=== PATIENT | female | born 1930 | race Caucasian/White ===

== ENCOUNTER 2016-08-24 17:13 | Emergency (ER) | payer OTHER ==
[~2016-08-24] VITALS: Ht 160 cm; Wt 68.0 kg
[~2016-08-24 17:13] MED LIST: ASPIRIN CHILDRE81 MG PO; ATORVASTATIN CA20 MG PO; ATORVASTATIN CA40 MG PO; AUGMENTIN 875875 MG PO; CIPRO 500MG TA500 MG PO; CLARITIN10 MG PO; COLACE100 MG PO; DONEPEZIL HYDRO10 MG PO; GLUCOPHAGE500 MG PO; GOOD NEIGHBOR650 M1 PO; LEVEMIR 10100 UNITS/ SC; LEVEMIR100 U/ML SC; MELOXICAM7.5 MG PO; MYRBETRIQ50 MG PO; NAMENDA XR28 MG PO; NORCO 7.5-3251 EACH PO; NOVOLOG100 U/ML SC; NYSTATIN100000 U/2 TOP; PRINIVIL 5MG5 MG PO; SENNA CON/DOCUS1 TAB PO; TRAZODONE HCL50 M1 PO; TYLENOL TAB 32325 MG PO; VITAMIN B121000 MC2 PO; VITAMIN D250000 UNIT PO; VITAMIN D31000 IU PO; ZOFRAN4 M2 PO
--- NOTE | 2016-08-24 17:22 | ED MVC/FALL/TRAUMA COMPLAINT ---
History of Present Illness General Chief Complaint: Fall Stated Complaint: ?FALL Source: patient, EMS Exam Limitations: no limitations Vital Signs & Intake/Output Vital Signs & Intake/Output Vital Signs Date Time Temp Pulse Resp B/P Pulse O2 O2 Flow FiO2 Ox Delivery Rate 08/24 1736 Room Air 08/24 1714 97.6 76 18 146/93 97 Room Air Allergies Coded Allergies: NO KNOWN ALLERGIES (06/20/16) Reconcile Medications Acetaminophen (Arthritis Pain Relief) 650 MG TAB 1 TAB PO Q4H PRN PAIN ( Reported) Aspirin (Children's Aspirin) 81 MG CTB 81 MG PO DAILY Heart Atorvastatin Calcium (Lipitor) 20 MG TAB 1 TAB PO DAILY CHOLESTEROL (Reported ) Bisacodyl (Women's Laxative) 5 MG TABLET 1 TAB PO DAILY PRN CONSTIPATION ( Reported) Cranberry Extract (Cranberry) (Unknown Strength) CAPSULE (Unknown Dose) PO DAILY SUPPLEMENT (Reported) Donepezil Hydrochloride 10 MG TAB 1 TAB PO QHS Dementia (Reported) Ergocalciferol (Vitamin D2) (Vitamin D2) 50,000 UNIT CAPSULE 1 CAP PO Q30D SUPPLEMENT (Reported) Hydrocodone/Acetaminophen ([employer] 7.5-325 Tablet) 7.5 MG-325 MG TABLET 1 TAB PO TID PRN BREAKTHROUGH PAIN (Reported) Insulin Aspart (Novolog) 100 UNIT/ML VIAL DM (Reported) Insulin Detemir (Levemir) 100 U/ML PLACIDO 9 U SC DAILY DIABETES (Reported) Insulin Detemir (Levemir) 100 U/ML PLACIDO 6 U SC AT BEDTIME DIABETES (Reported) Lisinopril (Prinivil) 5 MG TAB 5 MG PO DAILY HTN Meloxicam 7.5 MG TABLET 1 TAB PO DAILY KNEE PAIN (Reported) Nitrofurantoin (Macrodantin) 50 MG CAPSULE 1 CAP PO DAILY UTI PREVENTION ( Reported) Nystatin 100,000 U/GM POW 1 GABRIELLE TOP BID GROIN (Reported) apply to affected area(s) Ondansetron HCl (Zofran) 4 MG TABLET 1 TAB PO Q12H PRN NAUSEA (Reported) Trazodone HCl 50 MG TABLET 1 TAB PO QHS SLEEP (Reported) Triage Note: PT BIBA FROM [facility], PT WAS FOUND FACE DOWN ON THE FLOOR. PER EMS, PT WAS FOUND ENTAGLED IN HER WALKER, THEY BELIEVE IT TO BE A MECHANICAL FALL BUT WAS UNWITNESSED. PT IS ALERT AND CONFUSED AT BASELINE. Triage Nurses Notes Reviewed? yes HPI: THIS PATIENT is an 86-year-old female who presented to the emergency department today brought in by ambulance from an [facility] for evaluation of possible unwitnessed fall. The patient was found face down on the ground tangled up in her walker, per EMS. This patient is alert and confused at baseline. Poor historian due to her underlying dementia. Unable to answer most questions regarding the current history. She is currently denying any pain, visual changes, headaches, neck pain, head pain, chest pain, difficulty breathing, or any other associated symptoms. (LINDA REDDY PA-C) Past History Travel History Traveled to [facility] past 21 day No Medical History Any Pertinent Medical History? see below for history Neurological: dementia, r cva, chronic lacunar infarcts, b12 deficiency, seizure , expressive aphashia, congnitive communication deficit EENT: NONE Cardiovascular: hypertension, syncope Respiratory: NONE Gastrointestinal: NONE Hepatic: NONE Renal: NONE Musculoskeletal: osteoarthritis Psychiatric: NONE Endocrine: diabetes, osteoporosis Blood Disorders: NONE Cancer(s): NONE CIRCULAR STUFFER/Reproductive: NONE History of MRSA: No History of VRE: No History of CDIFF: No Surgical History Surgical History: non-contributory Psychosocial History Who do you live with Patient/Self Services at Home Nursing What is your primary language German Tobacco Use: Cognitive Impairment Family History Family History, If Any: Relation not specified for: FH: heart disease Hx Contributory? No (LINDA REDDY PA-C) Review of Systems Review of Systems Constitutional: Reports: no symptoms. Eyes: Reports: no symptoms. Ears, Nose, Throat, Mouth: Reports: no symptoms. Respiratory: Reports: no symptoms. Cardiovascular: Reports: no symptoms. Gastrointestinal/Abdominal: Reports: no symptoms. Genitourinary: Reports: no symptoms. Musculoskeletal: Reports: no symptoms. Skin: Reports: no symptoms. Neurological/Psychological: Reports: see HPI. All Other Systems: Reviewed and Negative (LINDA REDDY PA-C) Physical Exam Physical Exam General Appearance: well developed/nourished, no apparent distress, alert, awake Comments: Well-developed well-nourished person in no acute distress HEENT: Normal EENT exam, head normocephalic/atraumatic with no bony deformity/ step-off of the skull, no tenderness to palpation over the scalp. Pupils equally round and reactive to light. Nose is atraumatic. Neck: Supple. No lymphadenopathy. Full range of motion. No midline tenderness Back: Normal inspection Cardiovascular: Regular rate and rhythm with no murmurs, rubs, or gallops Respiratory: Chest nontender. No respiratory distress. Breath sounds clear to auscultation bilaterally Abdomen: Soft, nontender and nondistended Extremity: Normal and equal pulses. Neuro: Alert and oriented to person only. Cranial nerves II through XII grossly intact. No aphasia. No facial droop. No unilateral weakness Skin: No appreciable rash on exposed skin, skin is warm and dry. Psych: Mood and affect is flat Core Measures ACS in differential dx? Yes Severe Sepsis Present: No Septic Shock Present: No (BARRY GREEN,LINDA) Progress Differential Diagnosis: aoritic dissection, abd injury, C/T/L spine injury, ext injury, ICH, pelvis injury, pnemothorax, spinal cord injury Diagnostic Imaging: Viewed by Me: CT Scan. Discussed w/RAD: CT Scan. Radiology Impression: PATIENT: EDIE BAKER PRESENT AGE: 86 PATIENT ACCOUNT NO: [id number] : 29 LOCATION: [facility] ORDERING PHYSICIAN: LINDA REDDY PA-C SERVICE DATE: 08/24/16 EXAM TYPE: CAT - CT CERV SPINE WO IV CONTRAST; CT HEAD WO IV CONTRAST; CT MAXILLOFACIAL W/O CON EXAMINATION: CT HEAD WITHOUT CONTRAST CT MAXILLOFACIAL WITHOUT CONTRAST CT CERVICAL SPINE WITHOUT CONTRAST CLINICAL INFORMATION: Fall. Assess for intracranial bleed, fracture or cervical spine injury. COMPARISON: CT scans of the head and cervical spine 06/20/2016. TECHNIQUE: Multidetector CT imaging of the head, maxillofacial region and cervical spine was performed without the use of intravenous contrast. Coronal and sagittal reformatted images were generated at the technologist workstation. DLP: 1417.2 mGy-cm. FINDINGS: CT head: There is no evidence of acute intracranial hemorrhage or territorial infarction. No abnormal mass-effect or midline shift is seen. [place] to white matter differentiation is well preserved. No extra-axial fluid collections are identified. The ventricles and sulci are commensurately prominent consistent with moderate diffuse volume loss. The study redemonstrates patchy areas of low attenuation in the periventricular and subcortical white matter, consistent with sequelae of microvascular ischemic disease. There are lacunar infarcts in the bilateral basal ganglia. There is an area of encephalomalacia in the right occipital lobe, consistent with sequelae of an old infarct, unchanged. The osseous structures and soft tissues are normal. There are multiple areas teeth in the mandible and the maxilla. There is a small cyst in the right sphenoid sinus. The mastoid air cells are well-aerated. CT maxillofacial: The orbits, globes, and the lamina papyracea are intact. The orbital apices, optic canals, and retrobulbar fat planes are normal. The nasal bones are intact. The nasal septum is deviated to the right anteriorly, with a right-sided bony nasal septal spur. The maxillary deal, pterygoid plates and zygomatic arches are intact, and there are no air-fluid levels in the maxillary sinuses. There are zechariah palatini. The temporomandibular joints appear intact. No mandibular fracture is seen. Bone mineralization is diffusely decreased. There are no large soft tissue contusions. CT cervical spine: There is a dextroscoliosis in the cervicothoracic region. In the sagittal projection there is normal alignment of the vertebral bodies. Vertebral body heights are maintained and there are no compression fractures. Bone mineralization is diffusely decreased consistent with osteopenia. There are are multilevel facet arthropathic changes with uncovertebral osteophytes and multilevel foraminal narrowing. The lateral masses of C1 and C2 are normally aligned and the dens is intact. There are degenerative changes at the atlantoaxial joints bilaterally. The paravertebral soft tissues are unremarkable. The imaged lung apices are clear. There is calcification in the nuchal ligament. IMPRESSION: CT head: 1. There are no acute bleeds or territorial infarcts. 2. There are relatively extensive microvascular ischemic changes with lacunar infarcts. There is diffuse volume loss. 3. There are no calvarial fractures. CT maxillofacial: 1. There are no fractures. 2. There are no large soft tissue contusions. 3. There are multiple carious teeth in the mandible and the maxilla. CT cervical spine: 1. There are no acute fractures or subluxations. 2. There is multilevel spondylosis. 3. The bones are diffusely osteopenic. DICTATED BY: CHANTEL LAM MD DATE/TIME DICTATED:08/24/161805 ASSISTANT SALES DIRECTOR:SUKI DATE/TIME TRANSCRIBED:01/20/17 / 1806 CONFIDENTIAL, DO NOT COPY WITHOUT APPROPRIATE AUTHORIZATION. <Electronically signed in Other Vendor System> SIGNED BY: CHANTEL LAM MD 08/24/16 1835 Initial ED EKG: normal axis, normal intervals, normal sinus rhythm, no ST T wave changes, 69 BEATS PER MINUTE Hand-Off Endorsed To: JOSE LANG Endorsed Time: 1953 Pending: labs, Xray Comments: 08/24/2016 7:28:11 PM: Upon discharge, the patient's family member arrived. She reported that although the ECF reported that the patient is at her baseline, she is more confused and altered than normal. She also reported that every time this patient has fallen, it is because she is altered mentally and due to a urinary tract infection. She also reported that the patient was complaining of pain in her left shoulder and upper arm after the fall. Will straight cath this patient for a urine sample and obtain x-rays of the shoulder and humerus to rule-out dislocation or fracture. Unlikey a dislocation as this patient has good range of motion at the shoulder. (BARRY GREEN,LINDA) Plan of Care: Orders Procedure Date/time Status Straight Cath 08/24 1916 Active CULTURE,URINE 08/24 1916 Active URINALYSIS 08/24 1916 Complete TROPONIN LEVEL 08/24 172 Complete COMPREHENSIVE METABOLIC PANEL 08/24 172 Complete CBC WITHOUT DIFFERENTIAL 08/24 1720 Complete EKG 08/24 172 Active Laboratory Tests 08/24/16 2017: Urine Color YEL, Urine Clarity CLEAR, Urine pH 7.5, Ur Specific [place] 1.015, Urine Protein NEG, Urine Ketones NEG, Urine Nitrite NEG, Urine Bilirubin NEG, Urine Urobilinogen 0.2, Ur Leukocyte Esterase NEG, Ur Microscopic EXAM NOT REQUIRED, Urine Hemoglobin NEG, Urine Glucose NEG 08/24/16 1728: Anion Gap 12, Estimated GFR > 60, BUN/Creatinine Ratio 24.3, Glucose 100 H, Calcium 8.8, Total Bilirubin 0.7, AST 19, ALT 25, Alkaline Phosphatase 112, Troponin I < 0.01, Total Protein 6.7, Albumin 3.6, Globulin 3.1, Albumin/ Globulin Ratio 1.2, CBC w Diff NO MAN DIFF REQ, RBC 4.19 L, MCV 91.4, MCH 30.8, RDW 13.1, MPV 7.3 L, Gran % 82.6 H, Lymphocytes % 11.5 L, Monocytes % 4.9, Eosinophils % 0.7, Basophils % 0.3, Absolute Granulocytes 6.9 H, Absolute Lymphocytes 1.0 L, Absolute Monocytes 0.4, Absolute Eosinophils 0.1, Absolute Basophils 0, PUBS MCHC 33.7 Microbiology 08/24 2016 URINE ROUT: Urine Culture - RECD Radiology Impression: x ray humerus/shoulder: negative Comments: 08/24/2016 8:50:53 PM at change of shift this patient was signed out to me. Tylenol is pending urinalysis and shoulder and humerus x-ray. Patient does have full range of motion left shoulder. X-rays negative for any acute fracture. Urinalysis is negative. Patient will be transported back to nursing facility. Todd was informed of all lab results and imaging study results. All questions were answered. Agreeable to plan. Discussed with Dr. Dubon and she agrees as well. (JOSE LANG) Departure Departure Disposition: HOME OR SELF CARE Condition: Stable Clinical Impression Primary Impression: Fall Qualifiers: Encounter type: initial encounter Qualified Code: W19.XXXA - Unspecified fall, initial encounter Referrals: GARDENIA NOBLES MD (PCP/Family) Additional Instructions: Take all previously prescribed medications as direct did. Return for any worsening symptoms or concerns. Departure Forms: Customer Survey General Discharge Information (BARRY GREEN,LINDA) PA/BULL DRIVER Co-Sign Statement Statement: ED Attending supervision documentation- [X] I saw and evaluated the patient. I have also reviewed all the pertinent lab results and diagnostic results. I agree with the findings and the plan of care as documented in the PA's/BULL DRIVER's documentation. [X] I have reviewed the ED Record and agree with the PA's/BULL DRIVER's documentation. [] Additions or exceptions (if any) to the PAs/BULL DRIVER's note and plan are summarized below: [] (ENZO ELDER,MARIAM) Departure Time of Disposition: 2051 (JOSE LANG)
[2016-08-24 17:40] LABS: ABSOLUTE BASOPHIL COUNT 0 /CUMM (0.0-0.2); ABSOLUTE EOSINOPHIL COUNT 0.1 /CUMM (0.0-0.7); ABSOLUTE GRANULOCYTE CT 6.9 /CUMM (1.4-6.5); ABSOLUTE MONOCYTE COUNT 0.4 /CUMM (0.10-0.60); BASOPHIL % 0.3 % (0.0-2.0); EOSINOPHIL % 0.7 % (0-5); GRANULOCYTE % 82.6 % (42.2-75.2); HEMATOCRIT 38.3 % (37-47); MEAN CORPUSCULAR HGB 30.8 PG (27.0-31.0); MEAN CORPUSCULAR HGB CONC 33.7 G/DL (33.0-37.0); MEAN CORPUSCULAR VOLUME 91.4 FL (81.0-99.0); MEAN PLATELET VOLUME 7.3 FL (7.4-10.4); PLATELET COUNT 203 /CUMM (130-400); RBC DISTRIBUTION WIDTH 13.1 % (11.5-14.5); RED BLOOD CELL CT 4.19 /CUMM (4.20-5.40); WHITE BLOOD CELL COUNT 8.4 /CUMM (4.8-10.8)
[2016-08-24] MEDS ORDERED: NOVOLOG100 UNIT/2 SC (18:32)
[2016-08-24] MEDS ORDERED: CRANBERRY425 MG PO (18:34)
[2016-08-24] MEDS ORDERED: MACRODANTIN50 M1 PO (18:35)
--- NOTE | 2016-08-24 18:35 | CT SCAN REPORT ---
EXAMINATION: CT HEAD WITHOUT CONTRAST CT MAXILLOFACIAL WITHOUT CONTRAST CT CERVICAL SPINE WITHOUT CONTRAST CLINICAL INFORMATION: Fall. Assess for intracranial bleed, fracture or cervical spine injury. COMPARISON: CT scans of the head and cervical spine 06/20/2016. TECHNIQUE: Multidetector CT imaging of the head, maxillofacial region and cervical spine was performed without the use of intravenous contrast. Coronal and sagittal reformatted images were generated at the technologist workstation. DLP: 1417.2 mGy-cm. FINDINGS: CT head: There is no evidence of acute intracranial hemorrhage or territorial infarction. No abnormal mass-effect or midline shift is seen. [place] to white matter differentiation is well preserved. No extra-axial fluid collections are identified. The ventricles and sulci are commensurately prominent consistent with moderate diffuse volume loss. The study redemonstrates patchy areas of low attenuation in the periventricular and subcortical white matter, consistent with sequelae of microvascular ischemic disease. There are lacunar infarcts in the bilateral basal ganglia. There is an area of encephalomalacia in the right occipital lobe, consistent with sequelae of an old infarct, unchanged. The osseous structures and soft tissues are normal. There are multiple areas teeth in the mandible and the maxilla. There is a small cyst in the right sphenoid sinus. The mastoid air cells are well-aerated. CT maxillofacial: The orbits, globes, and the lamina papyracea are intact. The orbital apices, optic canals, and retrobulbar fat planes are normal. The nasal bones are intact. The nasal septum is deviated to the right anteriorly, with a right-sided bony nasal septal spur. The maxillary deal, pterygoid plates and zygomatic arches are intact, and there are no air-fluid levels in the maxillary sinuses. There are zechariah palatini. The temporomandibular joints appear intact. No mandibular fracture is seen. Bone mineralization is diffusely decreased. There are no large soft tissue contusions. CT cervical spine: There is a dextroscoliosis in the cervicothoracic region. In the sagittal projection there is normal alignment of the vertebral bodies. Vertebral body heights are maintained and there are no compression fractures. Bone mineralization is diffusely decreased consistent with osteopenia. There are are multilevel facet arthropathic changes with uncovertebral osteophytes and multilevel foraminal narrowing. The lateral masses of C1 and C2 are normally aligned and the dens is intact. There are degenerative changes at the atlantoaxial joints bilaterally. The paravertebral soft tissues are unremarkable. The imaged lung apices are clear. There is calcification in the nuchal ligament. IMPRESSION: CT head: 1. There are no acute bleeds or territorial infarcts. 2. There are relatively extensive microvascular ischemic changes with lacunar infarcts. There is diffuse volume loss. 3. There are no calvarial fractures. CT maxillofacial: 1. There are no fractures. 2. There are no large soft tissue contusions. 3. There are multiple carious teeth in the mandible and the maxilla. CT cervical spine: 1. There are no acute fractures or subluxations. 2. There is multilevel spondylosis. 3. The bones are diffusely osteopenic.
[2016-08-24] MEDS ORDERED: NORCO 7.5-3251 EACH PO (18:37)
[2016-08-24] MEDS ORDERED: WOMEN'S LAXATIVE5 M1 PO (18:38)
[2016-08-24] MEDS ORDERED: ZOFRAN4 M2 PO (18:39)
--- NOTE | 2016-08-24 20:07 | RADIOLOGY REPORT ---
EXAMINATION: XR HUMERUS, LEFT CLINICAL INFORMATION: Fall. COMPARISON: None TECHNIQUE: AP and lateral views of the left humerus. FINDINGS: No fracture. No dislocation of the shoulder. IMPRESSION: Normal humerus. No dislocation of shoulder.
--- NOTE | 2016-08-24 20:09 | RADIOLOGY REPORT ---
EXAMINATION: 3 views of the left shoulder CLINICAL INFORMATION: Fall. COMPARISON: None available. FINDINGS: There are no fractures. The glenohumeral and acromioclavicular joints are maintained. The visualized left lung is clear. IMPRESSION: No acute osseous findings.
[2016-08-24 20:54] VITALS: BP 164/71
== END 2016-08-24 21:08 ==
LOC: ERH 17:13
PROVIDERS: Physician Assistant
DX: Z04.3 Encounter for examination and observation following other accident (principal); F03.90 Unspecified dementia, unspecified severity, without behavioral disturbance, psychotic disturbance, mood disturbance, and anxiety; R56.9 Unspecified convulsions; E11.9 Type 2 diabetes mellitus without complications; Z79.4 Long term (current) use of insulin; I10 Essential (primary) hypertension; W19.XXXA Unspecified fall, initial encounter
CPT/HCPCS: 73030-LT; 73060-LT; 81003; 87086; 93005; 93010

== ENCOUNTER 2018-03-26 15:34 | Emergency (ER) | payer OTHER ==
[~2018-03-26] VITALS: Ht 170.2 cm; Wt 65.8 kg
[~2018-03-26 15:34] MED LIST changes: +CRANBERRY425 MG PO; +MACRODANTIN50 M1 PO; +NOVOLOG100 UNIT/2 SC; +WOMEN'S LAXATIVE5 M1 PO
[2018-03-26 15:37] VITALS: BP 164/77
--- NOTE | 2018-03-26 16:06 | ED MVC/FALL/TRAUMA COMPLAINT ---
History of Present Illness General Chief Complaint: Fall Stated Complaint: FALL Source: family, old records, EMS, [facility] Exam Limitations: dementia Vital Signs & Intake/Output Vital Signs & Intake/Output Vital Signs Date Time Temp Pulse Resp B/P B/P Pulse O2 O2 Flow FiO2 Mean Ox Delivery Rate 03/26 1551 Room Air 03/26 1537 97.6 102 18 164/77 95 Room Air Allergies Coded Allergies: No Known Allergies (06/22/17) Reconcile Medications Acetaminophen (Arthritis Pain Relief) 650 MG TAB 1 TAB PO Q4H PRN PAIN ( Reported) Aspirin (Children's Aspirin) 81 MG CTB 81 MG PO DAILY Heart Atorvastatin Calcium (Lipitor) 20 MG TAB 1 TAB PO DAILY CHOLESTEROL (Reported ) Bisacodyl (Women's Laxative) 5 MG TABLET 1 TAB PO DAILY PRN CONSTIPATION ( Reported) Cranberry Extract (Cranberry) (Unknown Strength) CAPSULE (Unknown Dose) PO DAILY SUPPLEMENT (Reported) Donepezil Hydrochloride 10 MG TAB 1 TAB PO QHS Dementia (Reported) Ergocalciferol (Vitamin D2) (Vitamin D2) 50,000 UNIT CAPSULE 1 CAP PO Q30D SUPPLEMENT (Reported) Hydrocodone/Acetaminophen ([place] 7.5-325 Tablet) 7.5 MG-325 MG TABLET 1 TAB PO TID PRN BREAKTHROUGH PAIN (Reported) Insulin Aspart (Novolog) 100 UNIT/ML VIAL DM (Reported) Insulin Detemir (Levemir) 100 U/ML PLACIDO 9 U SC DAILY DIABETES (Reported) Insulin Detemir (Levemir) 100 U/ML PLACIDO 6 U SC AT BEDTIME DIABETES (Reported) Ketoconazole 2 % CREAM..G. 1 GABRIELLE TOP DAILY FUNGAL INFECTION apply to affected area(s) Lisinopril (Prinivil) 5 MG TAB 5 MG PO DAILY HTN Meloxicam 7.5 MG TABLET 1 TAB PO DAILY KNEE PAIN (Reported) Nitrofurantoin (Macrodantin) 50 MG CAPSULE 1 CAP PO DAILY UTI PREVENTION ( Reported) Nystatin 100,000 U/GM POW 1 GABRIELLE TOP BID GROIN (Reported) apply to affected area(s) Ondansetron HCl (Zofran) 4 MG TABLET 1 TAB PO Q12H PRN NAUSEA (Reported) Sulfamethoxazole/Trimethoprim (Bactrim Ds Tablet) 800 MG-160 MG TABLET 1 TAB PO BID URINE INFECTION Trazodone HCl 50 MG TABLET 1 TAB PO QHS SLEEP (Reported) Triage Note: PT BIBA FROM [facility] AFTER PT WAS NOTED TO SLIP OFF HER BED AND THEN LEAN AGAINST HER NIGHTSTAND PT HAS DEMENTIA AND IS NON VERBAL FOR THE MOST PART. PT IS CALM AND COOPERATIVE AT THIS TIME. Triage Nurses Notes Reviewed? yes HPI: Patient has dementia and is unable to provide any history. Patient had a mechanical fall at her Alzheimer[facility] unit. Patient was found on the floor leaning up against an end table. There are no signs of trauma. Patient was sent in for evaluation. Patient is DNR/DNI. Patient's niece, who is the power of energy attorney, is a nurse and she is at the bedside during the exam. Past History Travel History Traveled to [place] past 21 day No Medical History Any Pertinent Medical History? see below for history Neurological: dementia, r cva, chronic lacunar infarcts, b12 deficiency, seizure , expressive aphashia, congnitive communication deficit EENT: NONE Cardiovascular: hypertension, syncope Respiratory: NONE Gastrointestinal: NONE Hepatic: NONE Renal: NONE Musculoskeletal: osteoarthritis Psychiatric: NONE Endocrine: diabetes, osteoporosis Blood Disorders: NONE Cancer(s): NONE EMERGENCY DEPARTMENT NURSE/Reproductive: NONE History of MRSA: No History of VRE: No History of CDIFF: No Surgical History Surgical History: non-contributory Psychosocial History Who do you live with Patient/Self Services at Home Nursing What is your primary language French Tobacco Use: Cognitive Impairment Family History Family History, If Any: Relation not specified for: FH: heart disease Hx Contributory? No Review of Systems Review of Systems Constitutional: Reports: see HPI. Physical Exam Physical Exam General Appearance: well developed/nourished, no apparent distress, awake Head: atraumatic, normal appearance, nO HEMATOMA Eyes: Bilateral: PERRL, EOMI. Ears, Nose, Throat, Mouth: hearing grossly normal, moist mucous membrane Neck: normal inspection, supple, full range of motion, no midline tenderness Respiratory: normal breath sounds, chest non-tender, no respiratory distress, lungs clear Cardiovascular: regular rate/rhythm, normal peripheral pulses Gastrointestinal: normal bowel sounds, soft, non-tender, no organomegaly Back: normal inspection, normal range of motion Extremities: normal range of motion, pelvis stable Neurologic/Psych: no motor/sensory deficits, awake Core Measures ACS in differential dx? No CVA/TIA Diagnosis No Sepsis Present: No Sepsis Focused Exam Completed? No Progress Differential Diagnosis: C/T/L spine injury, ICH, uti Plan of Care: Orders Procedure Date/time Status Add-on Test (ER Only) 03/26 162 Active CULTURE,URINE 03/26 161 Active Straight Cath 03/26 155 Active URINALYSIS 03/26 1553 Complete Laboratory Tests 03/26/18 1610: Urinalysis MOD H, Urine Color YEL, Urine Clarity TURBD H, Urine pH 6.5, Ur Specific [place] 1.015, Urine Protein 30 H, Urine Ketones NEG, Urine Nitrite POS H, Urine Bilirubin NEG, Urine Urobilinogen 0.2, Ur Leukocyte Esterase LARGE H, Ur Microscopic SEDIMENT EXAMINED, Urine RBC 5-10 H, Urine WBC PACKD H, Ur Epithelial Cells PACKD H, Urine Bacteria PACKD H, Urine Mucus MANY H, Urine Hemoglobin MOD H, Urine Glucose NEG Microbiology 03/26 1610 URINE ROUT: Urine Culture - RECD Comments: There is no signs of trauma, patient is at her baseline per her niece, patient is DNR/DNI, the niece is very comfortable with that no imaging. Departure Departure Disposition: ACUTE REHAB FACILITY Condition: Stable Clinical Impression Primary Impression: Head injury Secondary Impressions: Tinea cruris, UTI (urinary tract infection) Referrals: Pedro ELDER,Noe Melgar (PCP/Family) Additional Instructions: TAKE BACTRIM PRECRIBED USE KETOCONAZOL PRESCRIBED RETUNR IF SYMPTOMS WORSEN OR FOR ANY CONCNERS Departure Forms: Customer Survey General Discharge Information Prescriptions: Current Visit Scripts Ketoconazole 1 GABRIELLE TOP DAILY #15 GM apply to affected area(s) Sulfamethoxazole/Trimethoprim (Bactrim Ds Tablet) 1 TAB PO BID #20 TAB
[2018-03-26] MEDS ORDERED: KETOCONAZOLE15 GM TOP (16:38)
[2018-03-26] MEDS ORDERED: BACTRIM DS TAB1 EACH PO (16:38)
== END 2018-03-26 17:16 ==
LOC: ERH 15:34
DX: S09.90XA Unspecified injury of head, initial encounter (principal); B35.6 Tinea cruris; N39.0 Urinary tract infection, site not specified; W19.XXXA Unspecified fall, initial encounter; Y92.129 Unspecified place in nursing home as the place of occurrence of the external cause; Y93.89 Activity, other specified; Y92.9 Unspecified place or not applicable
CPT/HCPCS: 81001; 87086